=== PATIENT | male | born 1975 | race American Indian/Alaskan Native ===

== ENCOUNTER 2019-03-09 10:54 | Outpatient (CLI) | payer BC ==
--- NOTE | 2019-03-09 13:15 | Magnetic Resonance Report ---
MRI BRAIN WITHOUT CONTRAST: 03/09/19 CLINICAL: Traumatic brain injury and memory loss. No comparison. TECHNIQUE: Axial diffusion, T1, T2, gradient echo T2*, coronal and axial FLAIR and sagittal T1 sequences on a 1.5 Alana magnet. FINDINGS: The ventricles are normal size. Mild enlargement of frontal and parietal sulci. No restricted diffusion and no abnormal signal on any sequence. No chronic microbleeds on the gradient echo sequence. No mass or mass effect. No hemorrhage, edema or extra-axial collection. Normal pituitary and optic chiasm. The brainstem and cerebellum are normal. Intact vascular flow voids. Small mucous retention cysts of the maxillary sinuses but otherwise normal sinuses. The orbits, and soft tissues are normal. Normal calvarium and skull base. IMPRESSION: Mild cortical atrophy and no other brain abnormalities.
== END 2019-03-09 10:55 | disposition home or self-care (01) ==
LOC: MRI 10:54
PROVIDERS: ATTEND Psychiatry & Neurology Neurology
DX: G31.9 Degenerative disease of nervous system, unspecified (principal); R41.3 Other amnesia; I10 Essential (primary) hypertension
CPT/HCPCS: 36415; 70551; 82607; 84443; 86592